=== PATIENT | female | born 1940 | race Two or more races ===

== ENCOUNTER 2017-05-31 14:47 | Inpatient (IN) | payer MEDICAID, MEDICARE, OTHER ==
[~2017-05-31] VITALS: Ht 157.5 cm; Wt 59.9 kg
[~2017-05-31 14:47] MED LIST: AMLO5TAB2 PO; CAPT25TA3 PO
--- NOTE | 2017-05-31 15:00 | NUR ---
BIB FAMILY FOR CHEST PRESSURE AND PRODUCTIVE COUGH 1 MONTH. A/OX 4. BREATHING EVEN AND UNLABORED. NO SOB. VITALS STABLE. SAFETY AND COMFORT MEASURES IN PLACE. AWAITING MD ORDERS.
[2017-05-31 15:28] LABS: BASOPHILS % (AUTO) 0.5 % (0.0-2.0); EOSINOPHILS # (AUTO) 0.1 /CMM (0.0-0.7); EOSINOPHILS % (AUTO) 1.2 % (0.0-6.0); HEMATOCRIT 38 % (33-45); HEMOGLOBIN 12.8 g/dL (11.5-14.8); LYMPHOCYTES # (AUTO) 2.3 /CMM (0.8-4.8); LYMPHOCYTES % (AUTO) 26.8 % (20.0-44.0); MEAN CORPUSCULAR HEMOGLOBIN 30 PG (26.0-33.0); MEAN CORPUSCULAR HGB CONC 34 g/dl (31.0-36.0); MEAN CORPUSCULAR VOLUME 89 fL (82-100); MONOCYTES # (AUTO) 0.6 /CMM (0.1-1.30); MONOCYTES % (AUTO) 7.1 % (2.0-12.0); NEUTROPHILS # (AUTO) 5.7 /CMM (1.8-8.9); NEUTROPHILS % (AUTO) 64.4 % (43.0-81.0); PLATELET COUNT (AUTO) 322 /CMM (150-450); RDW COEFFICIENT OF VARIATION 11.9 (11.5-15.0); RED BLOOD CELL COUNT(AUTO) 4.24 MIL/uL (4.0-5.2); WHITE BLOOD COUNT (AUTO) 8.7 K/uL (4.3-11.0)
[2017-05-31] MEDS ORDERED: METOPROLOL TARTRATE INJ 5 MG/5 ML AMPUL ONE (15:28)
[2017-05-31] MEDS ORDERED: ONDANSETRON HCL/PF 4 MG/2 ML VIAL ONE (15:28)
[2017-05-31] MEDS ORDERED: MORPHINE SULFATE INJ 10 MG/ML DISP.SYRIN ONE (15:29)
[2017-05-31] MEDS ORDERED: MORPHINE SULFATE INJ 2 MG/ML DISP.SYRIN IV ONE (15:30)
[2017-05-31] MEDS ORDERED: ONDANSETRON HCL/PF - ER 4 MG/2 ML VIAL IV ONE (15:30)
[2017-05-31] MEDS ORDERED: ASPIRIN 325 MG TABLET ONE (15:30)
[2017-05-31] MEDS ORDERED: ASPIRIN 325 MG TABLET PO ONE (15:30)
[2017-05-31] MEDS ORDERED: METOPROLOL TARTRATE INJ 5 MG/5 ML AMPUL IV ONE (15:30)
--- NOTE | 2017-05-31 15:30 | NUR ---
NEW IV STARTED ON LAC, 20 G. BLOOD DRAWN AND SENT TO LAB.
[2017-05-31 15:39] LABS: CALCIUM, SERUM 9.1 mg/dL (8.5-10.1); CARBON DIOXIDE 25 mmol/L (21-32); CHLORIDE 105 mmol/L (98-107); GLUCOSE 99 mg/dL (74-106); POTASSIUM 4.3 mmol/L (3.5-5.1); SODIUM SERUM 139 mmol/L (136-145); UREA NITROGEN, BLOOD 11 mg/dL (7-18)
--- NOTE | 2017-05-31 15:40 | NUR ---
PATIENT MEDICATED PER MD ORDERS.
[2017-05-31 15:46] LABS: TROPONIN I < 0.017 ng/mL (0.00-0.056)
[2017-05-31 15:51] LABS: ALANINE AMINOTRANSFERASE 31 U/L (12-78); ALBUMIN 3.9 g/dL (3.4-5.0); ALKALINE PHOSPHATASE 72 U/L (46-116); ASPARTATE AMINOTRANSFERASE 36 U/L (15-37); B-TYPE NATRIURETIC PEPTIDE 458 PG/ML (0-125); BILIRUBIN,DIRECT 0.1 mg/dL (0.0-0.2); BILIRUBIN,TOTAL 0.4 mg/dL (0.2-1.0); TOTAL PROTEIN, SERUM 8.2 g/dL (6.4-8.2)
[2017-05-31] MEDS ORDERED: FUROSEMIDE 40 MG/4 ML VIAL IV ONE (16:00)
--- NOTE | 2017-05-31 16:04 | NUR ---
[facility] PAGED, AERIAL ERECTOR
--- NOTE | 2017-05-31 16:17 | NUR ---
CANCEL METOPROLOL IV, PATIENTS BLOOD PRESSURE/PULSE WNL.
[2017-05-31] MEDS ORDERED: ASPI81TA2 PO (16:18)
[2017-05-31] MEDS ORDERED: FUROSEMIDE 40 MG/4 ML VIAL ONE (16:18)
[2017-05-31] MEDS ORDERED: ALEN70TA45 PO (16:18)
[2017-05-31] MEDS ORDERED: CALC-108 PO (16:18)
[2017-05-31 16:19] LABS: D-DIMER 0.6 mg/L(FEU (0.17-0.50); INR 0.95 (0.87-1.13); PROTHROMBIN TIME 9.9 SECS (9.5-12.7)
[2017-05-31] MEDS ORDERED: LATA2.5D7 EACHEYE (16:19)
--- NOTE | 2017-05-31 16:35 | NUR ---
REPORT GIVEN TO ANDREW WEINSTEIN FOR ADMISSION.
--- NOTE | 2017-05-31 16:51 | NUR ---
PATIENT TRANSPORTED TO [facility]- VIA ACLS PROTOCOL. CORINNA MORALES TO PROVIDE GARIMA.
[2017-05-31 17:00] VITALS: BP 167/73
[2017-05-31] MEDS ORDERED: NITROGLYCERIN 0.4 MG/TAB BOTTLE SL PRN (17:00)
[2017-05-31] MEDS ORDERED: ONDANSETRON HCL/PF 4 MG/2 ML VIAL IVP PRN (17:00)
[2017-05-31] MEDS ORDERED: MORPHINE SULFATE INJ 10 MG/ML DISP.SYRIN IV PRN (17:00)
[2017-05-31] MEDS ORDERED: MAG HYDROX/AL HYDROX/SIMETH 30 ML UDC PO PRN (17:00)
[2017-05-31] MEDS: ASPIRIN 81 MG TAB.CHEW PO SCH (17:00)
--- NOTE | 2017-05-31 17:00 | NUR ---
ROLL MILL OPERATOR NOTES RECEIVED PATIENT ALERT, ORIENTED X3 SITUATED IN BED. BED IN LOW LOCKED POSITION, CALL LIGHT WITHIN REACH. PATIENT ORIENTED TO FLOOR AND ROOM. NO SOB OR ACUTE DISTRESS NOTED. PATIENT ABLE TO AMBULATE TO BATHROOM. NOTED WITH BILATERAL LOWER EXTREMITY RASH . CALL LIGHT WITHIN REACH. BED IN LOW LOCKED POSITION WILL CONTINUE TO MONITOR.
[2017-05-31] MEDS ORDERED: IOHEXOL-350 100 ML VIAL IV ONE (17:35)
[2017-05-31] MEDS ORDERED: IV NS 0.9% 250 ML IV ONE (17:35)
[2017-05-31] MEDS: METOPROLOL TARTRATE 25 MG TABLET PO SCH (18:04)
--- NOTE | 2017-05-31 18:46 | NUR ---
CONSUMER EXPERIENCE CONSULTANT NOTES PATIENT IN BED RESTING NO SOB OR ACUTE DISTRESS NOTED. PATIENT ALERT, ORIENTED X4. PERIPHERAL IV INTACT PAPNET. NONE ADMINISTERED ASA 81 FOR 1700 DUE TO PATIENT ALREADY RECEIVING A DOSE IN ER. ALL DUE MEDICATIONS ADMINISTERED ALL NEEDS MET. WILL ENDORSE GARIMA TO PM SHIFT. PATIENT DENIED ANY PAIN REPORTS SOME DISCOMFORT WHEN SHE TAKES A DEEP BREATH. WILL ENDORSE CAR TO PM SHIFT.
--- NOTE | 2017-05-31 19:30 | NUR ---
RN NOTES PATIENT IN BED ALERT AND ORIENTED X3. NO C/O PAIN AT THIS TIME. VS STABLE. RESPIRATIONS EVEN AND UNLABORED. IV ACCESS ON LEFT AC PATENT AND INTACT. BED IN LOW POSITION. SIDE RAILSX2. CALL LIGHT WITHIN EASY REACH. CONTINUE TO MONITOR.
[2017-05-31 20:00] VITALS: BP 140/83
[2017-05-31] MEDS: CAPTOPRIL 12.5 MG TABLET PO SCH (21:12)
[2017-05-31] MEDS: LATANOPROST EYE DROP 0.005% 2.5 ML BOTTLE EACHEYE SCH (21:23)
--- NOTE | 2017-05-31 23:40 | NUR ---
RN NOTES PATIENT C/O CP. MORPHINE 1MG/O.1 ML ADMINISTERED IV PUSH PRN. CONTINUE TO MONITOR.
[2017-06-01] VITALS: BP 120/68
[2017-06-01 00:04] VITALS: BP 120/68
[2017-06-01 04:39] VITALS: BP 121/68
--- NOTE | 2017-06-01 07:03 | NUR ---
RN CLOSING NOTES PATIENT IS SLEEPING IN BED, ALERT AND ORIENTED X3. NO C/O PAIN AT THIS TIME. VS STABLE. RESPIRATIONS EVEN AND UNLABORED. NO RESPIRATORY DISTRESS NOTED. IV ACCESS ON LEFT AC PATENT AND INTACT. ALL MEDICATIONS GIVEN PER MD ORDER. BED IN LOW POSITION. SIDE RAILSX2. CALL LIGHT WITHIN EASY REACH. WILL ENDORSE TO RN DAY SHIFT FOR CONTINUITY OF CARE.
--- NOTE | 2017-06-01 07:26 | NUR ---
SCALE INSTALLER OPENING NOTES RECEIVED PATIENT AWAKE IN BED IN NO ACUTE SIGNS OF DISTRESS. A/O X3, VERBALLY RESPONSIVE, BURUNDIAN SPEAKING, DENIES ANY PAIN OR DISCOMFORTS AT THIS TIME. ON TELE-MONITORING WITH CURRENT READING OF SR WITH HR OF 61, NO C/O CHEST PAIN VOICED. ON ROOM AIR, BREATHING EVEN AND UNLABORED. IV ACCESS ON LEFT AC INTACT AND PATENT, HL ONLY. BED IN LOW/LOCKED POSITION, CALL LIGHT WITHIN REACH. WILL CONTINUE TO MONITOR PY ACCORDINGLY.
[2017-06-01 08:00] VITALS: BP 131/68
[2017-06-01 08:17] LABS: BASOPHILS % (AUTO) 0.4 % (0.0-2.0); EOSINOPHILS # (AUTO) 0.1 /CMM (0.0-0.7); EOSINOPHILS % (AUTO) 0.7 % (0.0-6.0); HEMATOCRIT 41 % (33-45); HEMOGLOBIN 13.8 g/dL (11.5-14.8); LYMPHOCYTES # (AUTO) 1.7 /CMM (0.8-4.8); LYMPHOCYTES % (AUTO) 18.6 % (20.0-44.0); MEAN CORPUSCULAR HEMOGLOBIN 30 PG (26.0-33.0); MEAN CORPUSCULAR HGB CONC 34 g/dl (31.0-36.0); MEAN CORPUSCULAR VOLUME 90 fL (82-100); MONOCYTES # (AUTO) 0.6 /CMM (0.1-1.30); MONOCYTES % (AUTO) 6.9 % (2.0-12.0); NEUTROPHILS # (AUTO) 6.7 /CMM (1.8-8.9); NEUTROPHILS % (AUTO) 73.4 % (43.0-81.0); PLATELET COUNT (AUTO) 312 /CMM (150-450); RDW COEFFICIENT OF VARIATION 12.6 (11.5-15.0); RED BLOOD CELL COUNT(AUTO) 4.55 MIL/uL (4.0-5.2); WHITE BLOOD COUNT (AUTO) 9.1 K/uL (4.3-11.0)
[2017-06-01 08:29] LABS: CALCIUM, SERUM 9.2 mg/dL (8.5-10.1); CARBON DIOXIDE 31 mmol/L (21-32); CHLORIDE 102 mmol/L (98-107); CREATININE 1.1 mg/dL (0.6-1.3); GLUCOSE 116 mg/dL (74-106); MAGNESIUM 2.5 mg/dL (1.8-2.4); POTASSIUM 4.1 mmol/L (3.5-5.1); SODIUM SERUM 140 mmol/L (136-145); UREA NITROGEN, BLOOD 15 mg/dL (7-18)
[2017-06-01] MEDS ORDERED: ASPIRIN 81 MG TAB.CHEW PO SCH (09:00)
--- NOTE | 2017-06-01 09:00 | NUR ---
RN NOTES PT SEEN AND EVALUATED BY DR STEELE AND ORDERED TO DISCONTINUE TELE-MONITORING. ORDERED CARRIED OUT, PT NO C/O OF CHEST PAIN OR ANY DISTRESS. WILL CONTINUE TO MONITOR
[2017-06-01] MEDS: ASPIRIN 81 MG TAB.CHEW PO SCH (09:37)
[2017-06-01] MEDS: CALCIUM CARB 600MG /VIT D 1 EACH TABLET PO SCH (09:37)
[2017-06-01] MEDS: AMLODIPINE BESYLATE 5 MG TABLET PO SCH (09:37)
[2017-06-01] MEDS: METOPROLOL TARTRATE 25 MG TABLET PO SCH ×2 (09:38→16:42)
[2017-06-01] MEDS: CAPTOPRIL 12.5 MG TABLET PO SCH ×2 (09:40→16:41)
--- NOTE | 2017-06-01 14:44 | NUR ---
RN NOTES PATIENT FOR NUCLEAR MEDICINE STRESS TEST TOMORROW, EXPLAINED PROCEDURE TO SON AND PT. SON INTERPRET IT THOROUGHLY TO PT IN TURKISH PT SPEAKS ONLY TURKISH. PT VERBALIZED UNDERSTANDING AND SIGNED CONSENT. CONSENT FLAGGED ON HER CHART. WILL ENDORSED TO NEXT SHIFT NURSE.
[2017-06-01 16:00] VITALS: BP_SYST 126; BP_SYST 131; BP_DIAS 64; BP_DIAS 68
--- NOTE | 2017-06-01 18:34 | NUR ---
MS RN CLOSING NOTES PATIENT RESTING IN BED AT MODERATE HIGH BACKREST POSITION. A/O X3, GHANAIAN SPEAKING, NO C/O PAIN OR DISTRESS VOICED THROUGHOUT THE DAY. ON ROOM AIR, NO SOB NOTED. ALL NEEDS AND CARE ATTENDED WELL. IV ACCESS ON LEFT AC INTACT AND PATENT, HL ONLY. HOB KEPT ELEVATED. BED IN LOW/LOCKED POSITION, CALL LIGHT WITHIN REACH. ALL SAFETY MEASURES MAINTAINED. ALL DUE MEDS GIVEN ORDERED AND TOLERATED. WILL ENDORSED TO HOMOGENIZER OPERATOR NURSE FOR GARIMA. .
--- NOTE | 2017-06-01 19:15 | NUR ---
RN OPEN NOTES RECEIVED PATIENT AWAKE IN BED. A/O X3. NO SIGNS OF DISTRESS OR DISCOMFORT. BREATHING EVEN AND UNLABORED. IV ACCESS IN LAC PATENT AND INTACT, NO SIGNS OF REDNESS OR INFILTRATION. BED IN LOW LOCKED POSITION WITH SIDE RAILS X2. CALL LIGHT WITHIN REACH. WILL CONTINUE TO MONITOR.
[2017-06-01 20:00] VITALS: BP 129/50
[2017-06-01] MEDS: LATANOPROST EYE DROP 0.005% 2.5 ML BOTTLE EACHEYE SCH (21:22)
--- NOTE | 2017-06-02 07:13 | NUR ---
RN CLOSING NOTES PATIENT RESTING IN BED. A/O X3. NO SIGNS OF DISTRESS OR DISCOMFORT. BREATHING EVEN AND UNLABORED. IV ACCESS IN LAC PATENT AND INTACT, NO SIGNS OF REDNESS OR INFILTRATION. ALL NEEDS MET. NO SIGNIFICANT CHANGES THROUGH THE NIGHT. BED IN LOW LOCKED POSITION WITH SIDE RAILS X2. CALL LIGHT WITHIN REACH. WILL ENDORSE TO AM SHIFT FOR GARIMA.
--- NOTE | 2017-06-02 07:15 | NUR ---
RN MS NOTES PATIENT IN BED ALERT AND ORIENTED X3. NO S/SX OF DISTRESS OR DISCOMFORT. BREATHING EVEN AND UNLABORED. PERIPHERAL IV ACCESS INTACT AND FLUSHES WELL, NEEDS ATTENDED AND ANTICIPATED. KEPT NPO FOR STRESS TEST, CONSENTS SIGNED, BED IN LOW AND LOCKED POSITION WITH SIDE RAILS X2 UP. CALL LIGHT WITHIN REACH. WILL CONTINUE TO MONITOR.
[2017-06-02] MEDS ORDERED: ALENDRONATE 70 MG TABLET PO SCH (07:30)
[2017-06-02 08:00] VITALS: BP 131/70
[2017-06-02] MEDS ORDERED: REGADENOSON 0.4 MG/5 ML DISP.SYRIN IVP ONE (08:00)
--- NOTE | 2017-06-02 09:29 | NUR ---
RN MS NOTES PATIENT CAME BACK FROM [facility], MEDICATION GIVEN INSTRUCTED NOT TO EAT FOR 30 MINS.
[2017-06-02] MEDS: CALCIUM CARB 600MG /VIT D 1 EACH TABLET PO SCH (09:51)
[2017-06-02] MEDS: AMLODIPINE BESYLATE 5 MG TABLET PO SCH (09:51)
[2017-06-02] MEDS: ASPIRIN 81 MG TAB.CHEW PO SCH (09:51)
[2017-06-02] MEDS: METOPROLOL TARTRATE 25 MG TABLET PO SCH ×2 (09:51→17:00)
--- NOTE | 2017-06-02 10:00 | NUR ---
RN MS NOTES CALLED PHARMACY FOR CAPTOPRIL MEDICATION.
[2017-06-02] MEDS: CAPTOPRIL 12.5 MG TABLET PO SCH ×2 (11:42→17:00)
[2017-06-02 16:00] VITALS: BP 106/61
--- NOTE | 2017-06-02 18:36 | NUR ---
RN MS NOTES PATIENT ALERT AND ORIENTED X4, ROMANIAN SPEAKING, DENIES CHEST PAIN, COMPLETED STRESS TEST, DR. STEELE AWARE OF RESULTS, SKIN KEPT CLEAN AND DRY, PATIENT AMBULATES INDEPENDENTLY, STEADY GAIT, ASSISTED WITH ADLS, SAFETY MEASURES IN PLACED, CALL LIGHT WITHIN REACH, WILL ENDORSE TO LOAN INTERVIEWER MORTGAGE FOR GARIMA.
--- NOTE | 2017-06-02 19:30 | NUR ---
RN NOTES PATIENT IS IN BED, ALERT AND ORIENTED X4. TURKISH SPEAKING. VS STABLE. NO C/O CHEST PAIN AT THIS TIME. RESPIRATIONS EVEN AND UNLABORED. IV ACCESS ON LEFT AC HL PATENT AND INTACT, FLUSHING WELL. BED IN LOW POSITION. SIDE RAILS X2. CALL LIGHT WITHIN EASY REACH. CONTINUE TO [id number].
[2017-06-02 20:00] VITALS: BP 138/87
[2017-06-02] MEDS: LATANOPROST EYE DROP 0.005% 2.5 ML BOTTLE EACHEYE SCH (21:53)
--- NOTE | 2017-06-03 07:20 | NUR ---
MS RN initial notes Received pt in bed, asleep,on room air,no SOB no apparent distress noted. IV site Lt AC intact, patent, no s/sx of infiltration noted. Call light within reach. Will continue to monitor accordingly. Safety measures implemented.
--- NOTE | 2017-06-03 07:26 | NUR ---
RN CLOSING NOTES PATIENT IS SLEEPING IN BED, ALERT AND ORIENTED X4. AUSTRALIAN SPEAKING. VS STABLE. NO C/O CHEST PAIN AT THIS TIME. RESPIRATIONS EVEN AND UNLABORED. IV ACCESS ON LEFT AC HL PATENT AND INTACT, FLUSHING WELL. BED IN LOW POSITION. SIDE RAILS X2. CALL LIGHT WITHIN EASY REACH. WILL ENDORSE TO RN DAY SHIFT FOR CONTINUITY OF CARE.
[2017-06-03 08:00] VITALS: BP 118/65
[2017-06-03] MEDS: CALCIUM CARB 600MG /VIT D 1 EACH TABLET PO SCH (08:41)
[2017-06-03] MEDS: ASPIRIN 81 MG TAB.CHEW PO SCH (08:41)
[2017-06-03] MEDS: AMLODIPINE BESYLATE 5 MG TABLET PO SCH (08:44)
[2017-06-03] MEDS: METOPROLOL TARTRATE 25 MG TABLET PO SCH (08:44)
--- NOTE | 2017-06-03 09:40 | NUR ---
WOUND CARE CONSULT: PT SEEN FOR DISCOLORED SPOTS ON LOWER LEGS. PT STATES HAS PREVIOUS RASH WHICH WAS TREATED TOPICALLY AND HAS RESOLVED. NO DRAINAGE NOTED. PT AMBULATORY AND CONTINENT. WILL SEE PRN.
[2017-06-03] MEDS: CAPTOPRIL 12.5 MG TABLET PO SCH (09:57)
--- NOTE | 2017-06-03 15:45 | NUR ---
MS RN Notes Pt refused pictures on the skin to be taken upon discharge, offered x 3 explained benefits, still refusing. Stated " I want to go home". Alert, awake in stable condition.Attended all needs.
[2017-06-03 16:00] VITALS: BP 152/70
--- NOTE | 2017-06-03 16:00 | NUR ---
MS hospice clinical manager notes Pt discharged in stable condition, alert, oriented x4,verbally responsive, denies any pain or discomfort at this time. Discharge instructions given to the pt,,regarding medication administration and disease process, verbalized understanding. IV access removed, tolerated well, no bleeding noted. notified. Pt left the facility accompanied by her family.Attended all needs
== END 2017-06-03 16:06 | disposition home or self-care (01) | DRG 202 ==
LOC: ER 14:50 → TELE 16:21 → MED 06-01 09:36
PROVIDERS: ADMIT Internal Medicine; ATTEND Internal Medicine
DX: J40 Bronchitis, not specified as acute or chronic (principal); I50.32 Chronic diastolic (congestive) heart failure; I11.0 Hypertensive heart disease with heart failure; M81.0 Age-related osteoporosis without current pathological fracture; R09.1 Pleurisy
CPT/HCPCS: 36415; 71010-TC; 80048-TC; 80076-TC; 83735-TC; 83880; 84484-TC; 85025-TC; 85378-TC; 85730-TC; 87081-TC; 93307-TC; A4606; A9502; J1940; J2270; J2405; J2785; J3490; J7050; Q9967; Z7610

== ENCOUNTER 2017-06-09 11:48 | Outpatient (CLI) | payer MEDICAID, MEDICARE, OTHER ==
[~2017-06-09 11:48] MED LIST changes: +ALEN70TA45 PO; +ASPI-1169 PO; +CALC-261 PO; +LATA2.5D7 EACHEYE
[2017-06-09 11:57] VITALS: BP 134/59
== END 2017-06-09 23:59 | disposition home or self-care (01) ==
LOC: MSC 11:48
PROVIDERS: ATTEND Internal Medicine
DX: R05 Cough (principal); M81.0 Age-related osteoporosis without current pathological fracture; I25.10 Atherosclerotic heart disease of native coronary artery without angina pectoris; I10 Essential (primary) hypertension